=== PATIENT | female | born 1985 | race Caucasian/White ===

== ENCOUNTER 2017-05-24 20:59 | Emergency (ER) | payer BC ==
[2017-05-24 21:05] VITALS: RESP 16; TEMP 97.2
[2017-05-24] MEDS ORDERED: methylPREDNISolone SOD SUCCI 125 MG/2 ML VIAL IM ONE (21:14)
[2017-05-24] MEDS ORDERED: diphenhydrAMINE 50 MG/ML 1 ML VIAL IM STA (21:15)
--- NOTE | 2017-05-24 21:32 | ED ---
General Adult HPI - General Chief complaint: Skin/Abscess/Foreign Body Stated complaint: bee sting hx Allergy no Epi Time Seen by Provider: 05/24/17 21:09 Source: patient, family, RN notes reviewed, old records reviewed Mode of arrival: ambulatory Limitations: no limitations - History of Present Illness Initial comments: 31-year-old female presents emergency department with chief complaint of a bee sting on her right posterior upper arm. Patient reports this occurred probably 20 minutes ago. She reports that she is very ALLERGIC to bees. She states that she put essential oils on her staying, but did not take any Benadryl. Patient reports she also has an EpiPen but did not use it. Patient denies any chest pain shortness breath. Patient states that she's feeling chilled, denies any other symptoms. Patient states that she has no swelling or tongue. She states that occasionally her hands feel tingly.Patient denies any recent fever, chills, shortness of breath, chest pain, back pain, abdominal pain, nausea vomiting, numbness or tingling, dysuria or hematuria, constipation or diarrhea, headaches or visual changes, or any other current symptoms - Related Data Home Medications Medication Instructions Recorded Confirmed Beatty Thyroid (Unknown Dose) 1 tab PO DAILY 05/24/17 05/24/17 EPINEPHrine [Epipen 2-Sergio] 0.3 mg IM ONCE PRN 05/24/17 05/24/17 Previous Rx's Medication Instructions Recorded diphenhydrAMINE [Benadryl] 25 mg PO QID PRN #20 capsule 05/24/17 predniSONE 20 mg PO BID #6 tab 05/24/17 Allergies Allergy/AdvReac Type Severity Reaction Status Date / Time bee venom protein (honey bee) Allergy Anaphylaxis Verified 05/24/17 21:23 Penicillins Allergy Anaphylaxis Verified 05/24/17 21:23 Review of Systems ROS Statement: Those systems with pertinent positive or pertinent negative responses have been documented in the HPI. ROS Other: All systems not noted in ROS Statement are negative. Past Medical History Additional Past Medical History / Comment(s): bee sting allergy History of Any Multi-Drug Resistant Organisms: None Reported Past Surgical History: No Surgical Hx Reported Past Psychological History: No Psychological Hx Reported Smoking Status: Never smoker Past Alcohol Use History: None Reported Past Drug Use History: None Reported General Exam - General Exam Comments Initial Comments: 31-year-old female. No acute distress. Limitations: no limitations General appearance: alert, in no apparent distress Head exam: Present: atraumatic, normocephalic, normal inspection Eye exam: Present: normal appearance, PERRL, EOMI. Absent: scleral icterus, conjunctival injection, periorbital swelling ENT exam: Present: normal exam, mucous membranes moist Neck exam: Present: normal inspection. Absent: tenderness, meningismus, lymphadenopathy Respiratory exam: Present: normal lung sounds bilaterally. Absent: respiratory distress, wheezes, rales, rhonchi, stridor Cardiovascular Exam: Present: regular rate, normal rhythm, normal heart sounds. Absent: systolic murmur, diastolic murmur, rubs, gallop, clicks GI/Abdominal exam: Present: soft, normal bowel sounds. Absent: distended, tenderness, guarding, rebound, rigid Extremities exam: Present: normal inspection, full ROM, normal capillary refill. Absent: tenderness, pedal edema, joint swelling, calf tenderness Back exam: Present: normal inspection Neurological exam: Present: alert, oriented X3, CN II-XII intact Psychiatric exam: Present: normal affect, normal mood Skin exam: Present: warm, dry, intact, normal color, other (Area of erythema over posterior right arm. No evidence of stinger noted.). Absent: rash Course Vital Signs 05/24/17 21:02 Temperature 97.2 F L Pulse Rate 102 H Respiratory 16 Rate Blood Pressure 136/82 O2 Sat by Pulse 96 Oximetry Medical Decision Making - Medical Decision Making 31-year-old comes in chief complaint bee sting on right upper forearm. Patient with essential oils over arm, did not take any Benadryl. She states she is ALLERGIC to these. At this time patient has no respiratory distress, no swelling patient was given IM Benadryl and Solu-Medrol. Patient will be kept emergency department for further evaluation for the next 30 minutes or so. Patient reports she is feeling somewhat better at this time. Patient discharged with prescription for prednisone. Physician in the take Benadryl every 4 hours. Patient history plan will comply. Return parameters were discussed. Disposition Clinical Impression: Bee sting allergy Disposition: HOME SELF-CARE Condition: Good Instructions: Insect Bite or Sting (ED) Additional Instructions: Patient advised to take the medications as prescribed. Apply ice over the back of the arm. Return to the emergency department if any alarming signs or symptoms occur. Prescriptions: diphenhydrAMINE [Benadryl] 25 mg PO QID PRN #20 capsule PRN Reason: Itching predniSONE 20 mg PO BID #6 tab Referrals: Annamaria Fuchs DO [Primary Care Provider] - 1-2 days Time of Disposition: 22:14
[2017-05-24 22:35] VITALS: BP 119/59; PULSE 82
== END 2017-05-24 22:35 | disposition home or self-care (01) ==
LOC: EC 20:59
DX: T63.441A Toxic effect of venom of bees, accidental (unintentional), initial encounter (principal); Z79.899 Other long term (current) drug therapy; Z88.0 Allergy status to penicillin; Z91.030 Bee allergy status
CPT/HCPCS: 99283; 96372 ×2; J1200; J2930

== ENCOUNTER 2018-06-08 14:01 | Emergency (ER) | payer BC ==
[2018-06-08] MEDS ORDERED: predniSONE 50 MG TAB PO STA (14:51)
[2018-06-08] MEDS ORDERED: diphenhydrAMINE 50 MG CAP PO STA (14:51)
--- NOTE | 2018-06-08 14:55 | ED ---
General Adult HPI - General Chief complaint: Allergic Reaction Stated complaint: Bee sting Time Seen by Provider: 06/08/18 14:30 Source: patient, RN notes reviewed Mode of arrival: ambulatory Limitations: no limitations - History of Present Illness Initial comments: Patient is a pleasant 32-year-old female presenting to the emergency department following bee sting. Incident occurred approximately 15 minutes prior to arrival. Patient was stung of her right leg. Patient does have a history of previous bee sting that caused her to have soreness of breath and passed out. Patient states at this time she is only having discomfort in the area of the sting. No other areas of concern patient has no difficulty breathing at this time. Patient has no swelling of her throat or tongue or face. - Related Data Home Medications Medication Instructions Recorded Confirmed EPINEPHrine [Epipen 2-Sergio] 0.3 mg IM ONCE PRN 05/24/17 06/08/18 Multivitamins, Thera [Multivitamin 1 tab PO DAILY 06/08/18 06/08/18 (formulary)] [employer] Thyroid 90mcg 90 mcg PO DAILY 06/08/18 06/08/18 diphenhydrAMINE [Benadryl] 50 mg PO QID PRN 06/08/18 06/08/18 Previous Rx's Medication Instructions Recorded predniSONE 20 mg PO BID #10 tab 06/08/18 Allergies Allergy/AdvReac Type Severity Reaction Status Date / Time amoxicillin Allergy Anaphylaxis Verified 06/08/18 14:30 bee venom protein (honey bee) Allergy Anaphylaxis Verified 06/08/18 14:30 Penicillins Allergy Anaphylaxis Verified 06/08/18 14:30 Review of Systems ROS Statement: Those systems with pertinent positive or pertinent negative responses have been documented in the HPI. ROS Other: All systems not noted in ROS Statement are negative. Constitutional: Denies: fever Eyes: Denies: eye pain ENT: Denies: ear pain Respiratory: Denies: cough, dyspnea Cardiovascular: Denies: chest pain Endocrine: Denies: fatigue Gastrointestinal: Denies: abdominal pain Genitourinary: Denies: dysuria Musculoskeletal: Denies: back pain Skin: Reports: other (Right lower leg bee sting) Past Medical History Additional Past Medical History / Comment(s): bee sting allergy History of Any Multi-Drug Resistant Organisms: None Reported Past Surgical History: No Surgical Hx Reported Past Psychological History: No Psychological Hx Reported Smoking Status: Never smoker Past Alcohol Use History: None Reported Past Drug Use History: None Reported General Exam Limitations: no limitations General appearance: alert, in no apparent distress Head exam: Present: atraumatic, normocephalic Eye exam: Present: normal appearance, PERRL ENT exam: Present: normal oropharynx, other (No signs of angioedema) Neck exam: Present: normal inspection Respiratory exam: Present: normal lung sounds bilaterally. Absent: respiratory distress, wheezes Cardiovascular Exam: Present: regular rate, normal rhythm GI/Abdominal exam: Present: soft. Absent: tenderness Extremities exam: Present: other (Area of inflammation approximate 4 x 4 cm right leg consistent with recent bee sting) Neurological exam: Present: alert Psychiatric exam: Present: normal affect, normal mood Skin exam: Present: erythema (Right lower leg) Course Vital Signs 06/08/18 14:15 Temperature 97.9 F Pulse Rate 77 Respiratory 18 Rate Blood Pressure 125/81 O2 Sat by Pulse 97 Oximetry - Reevaluation(s) Reevaluation #1: 06/08/18 14:57 Patient reevaluated and unchanged. Patient updated. Disposition Clinical Impression: Allergic reaction to insect sting Disposition: HOME SELF-CARE Condition: Stable Instructions: Insect Bite or Sting (ED) Additional Instructions: Please follow-up with primary care physician on Sunday. Return for fever, increased redness or swelling, swelling of the throat or tongue or face, difficulty breathing, passing out, worsening symptoms or other concerns. Continue with Benadryl 4 times daily for the next 5 days. Prescriptions: predniSONE 20 mg PO BID #10 tab Is patient prescribed a controlled substance at d/c from ED?: No Referrals: Annamaria Fuchs DO [Primary Care Provider] - 1-2 days Time of Disposition: 14:57
[2018-06-08 15:24] VITALS: BP 136/93; PULSE 74; RESP 16; TEMP 97.5
== END 2018-06-08 15:23 | disposition home or self-care (01) ==
LOC: EC 14:01
DX: T63.441A Toxic effect of venom of bees, accidental (unintentional), initial encounter (principal); Z88.0 Allergy status to penicillin; Z91.018 Allergy to other foods; Z79.899 Other long term (current) drug therapy
CPT/HCPCS: 99283; J7512

== ENCOUNTER → 2021-07-29 | Outpatient (CLI) | payer BC ==
[~2021-07-29] MED LIST: BAMLANIVIMAB (EUA) 700 MG, ETESEVIMAB (EUA) 1,400 MG in SODIUM CHLORIDE 0.9% 50 ML IVPB ONE; SODIUM CHLORIDE 0.9% 50 ML IVPB ONE; SODIUM CHLORIDE 0.9% 500 ML 500 ML in EMPTY BAG 1 BAG IV PRN
[2021-07-29 08:35] VITALS: RESP 16; TEMP 98.4
[2021-07-29 09:00] VITALS: BP 121/83; PULSE 84
== END | disposition home or self-care (01) ==
LOC: PROCWHC3 08:04
PROVIDERS: ATTEND Family Medicine
DX: U07.1 COVID-19 (principal)
CPT/HCPCS: 96360; J3490; M0245